=== PATIENT | male | born 1955 | race Caucasian/White ===

== ENCOUNTER 2024-06-27 10:09 | Emergency (ER) | payer MEDICARE, OTHER ==
[2024-06-27] MEDS ORDERED: Sodium Chloride 0.9% 10 ML Syringe FLUSH PRN (10:19)
[2024-06-27] MEDS ORDERED: Heparin Sodium/0.45% NaCl 25,000 UNITS/500 ML BAG IV SCH (10:30)
[2024-06-27 10:32] LABS: BASOPHILS PERCENT AUTO 0.1 % (0.0-1.0); EOSINOPHILS PERCENT AUTO 0.1 % (1.0-3.0); HEMATOCRIT 53.8 % (40.0-54.0); HEMOGLOBIN 18.3 g/dL (14.0-18.0); LYMPHOCYTES PERCENT AUTO 7.2 % (20.5-50.1); MEAN CORPUSCULAR HEMOGLOBIN 30.3 pg (27.0-34.0); MEAN CORPUSCULAR VOLUME 89.2 fL (80-100); MONOCYTES PERCENT AUTO 9.7 % (2-8); NEUTROPHILS PERCENT AUTO 82.9 % (42.2-75.2); PLATELET COUNT,PLT 395 10^3/uL (150-450); RED BLOOD CELL COUNT 6.03 10^6/uL (4.6-6.2); WHITE BLOOD CELL COUNT,WBC 21.7 10^3/uL (5.0-10.0)
[2024-06-27 10:52] LABS: PROTHROMBIN TIME 10.7 SEC (9.0-12.0); PTT,PARTIAL THROMBOPLSTIN TIME 25.3 SEC (22.0-34.0)
[2024-06-27 10:55] LABS: A/G RATIO 0.8; ALANINE AMINOTRANSFERASE,ALT 96 U/L (16-63); ALKALINE PHOSPHATASE 96 U/L (46-116); ANION GAP 15.1 mEq/L (7-13); ASPARTATE AMNIOTRANSFERASE,AST 597 U/L (15-37); BILIRUBIN TOTAL 0.7 mg/dL (0.2-1.0); BLOOD UREA NITROGEN,BUN 17 mg/dL (7-18); BUN/CREATININE RATIO 13.2 (No establ ref range); CALCIUM 10.4 mg/dL (8.5-10.1); CARBON DIOXIDE,CO2 27 mmol/L (21-32); CHLORIDE,CL 103 mmol/L (98-107); CREATININE 1.29 mg/dL (0.70-1.30); GLUCOSE RANDOM 153 mg/dL (70-99); POTASSIUM,K 4.1 mmol/L (3.5-5.1); PROTEIN TOTAL,TP 9.1 g/dL (6.4-8.2); SODIUM,NA 141 mmol/L (136-145)
[2024-06-27 11:00] LABS: ESTIMATED GFR 61 mL/min (>=60)
[2024-06-27] MEDS: Aspirin 81 MG Tab.Chew PO ONE (14:37)
[2024-06-27] MEDS: Ondansetron 4 MG/2 ML SDV ONE (14:38)
[2024-06-27] MEDS: Ondansetron 4 MG/2 ML SDV IVPUSH ONE (14:38)
[2024-06-27] MEDS: Clopidogrel 75 MG Tab PO ONE (14:38)
[2024-06-27] MEDS: Heparin Sodium 5,000 Units/ML Vial IVPUSH ONE (14:38)
== END 2024-06-27 10:50 ==
LOC: DL.ED 10:09
DX: I21.3 ST elevation (STEMI) myocardial infarction of unspecified site (principal)
CPT/HCPCS: 36415; 80053; 84484; 85025; 85610; 85730; 93005; 96374; 99285; A9270; J1644; J2405; 93010